=== PATIENT | male | born 1985 | race African-American/Black ===

== ENCOUNTER 2019-10-06 12:24 | Emergency (ER) | payer BC, SELFPAY ==
[2019-10-06 12:35] VITALS: BP 137/78; PULSE 85; RESP 16; TEMP 37.1; O2SAT 98
--- NOTE | 2019-10-06 12:50 | ED.DIZZY ---
HPI - Dizziness General Chief Complaint: Dizziness Stated Complaint: chest pain,dizziness Time Seen by Provider: 10/06/19 12:50 Source: patient Mode of arrival: ambulatory Limitations: no limitations History of Present Illness HPI Narrative: Roni Muniz is a 34 yo male with a PMH of chronic low back pain who comes to express care with complaints of chest pain and dizziness on wakening, states he has no chest pain and little to no dizziness. Denies alcohol or drug use, prior medical history, denies fever or illness. States he got overheated at work on Sunday, workout on Sunday and socialized with family on Father's Day. [place] drained and fatigue Description: lightheadedness Related Data Home Medications Medication Instructions Recorded Confirmed No Home Medications 10/06/19 10/06/19 Allergies Allergy/AdvReac Type Severity Reaction Status Date / Time No Known Allergies Allergy Verified 10/06/19 13:04 Review of Systems Review of Systems: Narrative: CONSTITUTIONAL: Denies fever, chills, sweats. EYES: Denies visual changes, redness, discharge. ENT: Denies rhinorrhea, congestion, sore throat, otalgia. CARDIOVASCULAR: chest pain earlier, no palpitations, edema. RESPIRATORY: Denies dyspnea, wheezing, cough GASTROINTESTINAL: Denies abdominal pain, nausea, vomiting, diarrhea. GENITOURINARY: Denies dysuria, hematuria, abnormal discharge SKIN: Denies rash or itching. NEUROLOGIC: Denies numbness, or focal weakness. Mild dizziness PSYCHIATRIC: Denies anxiety or depression. PMFSH Surgical History Surgical History History of appendectomy Status post carpal tunnel release Family History Family History Other No active medical problems Social History Social History Smoking status: Never smoker Second hand tobacco smoke exposure: No Alcohol intake: never Substance use: never Substance use type: does not use Gender identity (if verbalized by the patient): Male Comments At time of signature, I agree with nursing past medical, surgical, social and family history. There is no relevant family history pertinent to the presenting complaint. Exam Narrative: Exam Narrative: GENERAL: This is a well-nourished, well-developed patient, in mild distress. HEAD: normocephalic, atraumatic. EYES: PERRL. Sclera clear/white. Vision is grossly intact. EARS: External ears normal, . Hearing grossly intact. NOSE: External nose normal without nasal discharge, nares without redness, no rhinorrhea. THROAT: Mucous membranes moist, posterior pharynx NECK: Neck supple, CARDIOVASCULAR: Regular rate and rhythm without murmurs, gallops, or rubs. RESPIRATORY: Clear to auscultation. Breath sounds equal bilaterally. No wheezes, rales, or rhonchi. GASTROINTESTINAL: Abdomen soft, SKIN: warm, intact with no suspicious lesions or rash, good texture and turgor. NEURO: awake, alert, and oriented to person, place and time. There were no obvious focal neurologic abnormalities. Steady gait EXTREMITIES: Normal range of motion. BACK: Nontender without deformity Course Course Emergency Course: EKG done-no abnormalities Discussed activities during the Vital Signs Vital signs: Vital Signs Temperature 98.8 F 10/06/19 12:35 Pulse Rate 85 10/06/19 12:35 Respiratory Rate 16 10/06/19 12:35 Blood Pressure 137/78 10/06/19 12:35 Pulse Oximetry 98 10/06/19 12:35 Temperature 98.8 F 10/06/19 12:35 Pulse Rate 85 10/06/19 12:35 Respiratory Rate 16 10/06/19 12:35 Blood Pressure 137/78 10/06/19 12:35 Pulse Oximetry 98 10/06/19 12:35 Procedures Other Procedure Procedure 1: Other Procedure: EKG: HR 72, NSR, no axis deviation, no ST, QRS abnormalities. Normal EKG MDM - Dizziness Differential Diagnosis Differential diagnosis: Likely
--- NOTE | 2019-10-06 12:59 | ECG_ITS ---
Measurements Intervals [place] Rate: 72 P: 42 IL: 158 QRS: 45 QRSD: 91 T: 10 QT: 350 QTc: 383 Interpretive Statements SINUS RHYTHM NORMAL ECG Electronically Signed On 10-06-2019 14:45:41 CDT by Hemal Flores D.O.
== END 2019-10-06 13:23 | disposition home or self-care (01) ==
PROVIDERS: Emergency Provider Nurse Practitioner; PCP Family Medicine
DX: E86.0 Dehydration (principal)
CPT/HCPCS: 93005; 99213; G0463

== ENCOUNTER 2020-02-29 11:48 | Emergency (ER) | payer BC, SELFPAY ==
[2020-02-29 11:57] VITALS: BP 154/86; PULSE 97; RESP 16; TEMP 36.8; O2SAT 99
[2020-02-29 11:58] VITALS: BP 154/86; PULSE 97; RESP 16; TEMP 36.8; O2SAT 99
--- NOTE | 2020-02-29 12:05 | ED.GENADULT ---
HPI - General Adult General Chief complaint: Unspecified Stated complaint: knot on neck Time Seen by Provider: 02/29/20 11:58 Source: patient and RN notes reviewed Mode of arrival: ambulatory Limitations: no limitations History of Present Illness HPI narrative: Patient presents today complaining of a lump on either side of his neck that is swollen since this morning. Denies pain. Denies any sick symptoms to include sore throat, ear pain, tooth pain, neck pain, fever. States he could possibly be having an allergic reaction to the mouthwash she is been using and states is exceptionally strong and flavor. Denies any additional symptoms. MD complaint: Lump on neck Related Data Home Medications Medication Instructions Recorded Confirmed No Home Medications 02/29/20 02/29/20 Allergies Allergy/AdvReac Type Severity Reaction Status Date / Time No Known Allergies Allergy Verified 02/29/20 11:53 Review of Systems Review of Systems: Narrative: CONSTITUTIONAL: Denies body aches, fever, chills, or sweats. EYES: Denies visual changes, redness, or discharge. ENT: Denies rhinorrhea, congestion, sore throat, or otalgia. Lump on neck CARDIOVASCULAR: Denies chest pain, palpitations, or edema. RESPIRATORY: Denies cough or dyspnea. GASTROINTESTINAL: Denies abdominal pain, nausea, vomiting, or diarrhea. GENITOURINARY: Denies dysuria or hematuria. SKIN: Denies rash, itching, or wounds. MUSCULOSKELETAL: Denies back pain, joint pain, or myalgia. NEUROLOGIC: Denies headache, numbness, tingling, or weakness. PSYCH: Denies depression or anxiety. [facility] Surgical History Surgical History History of appendectomy Status post carpal tunnel release Family History Family History Other No active medical problems Social History Social History Smoking status: Never smoker Second hand tobacco smoke exposure: No Alcohol intake: never Substance use: never Substance use type: does not use Gender identity (if verbalized by the patient): Male Comments At time of signature, I have reviewed and agree with nursing past medical, surgical, social and family history unless otherwise noted. Please see nursing chart for further information. There is no relevant family history pertinent to the presenting complaint Exam Narrative: Exam Narrative: GENERAL: Well-appearing, well-nourished, and in no acute distress. HEAD: Normocephalic, atraumatic. EYES: EOMI. No redness or drainage. Conjunctivae normal. ENT: Mucous membranes pink and moist. Nares clear. No rhinorrhea. TMs normal bilaterally. Throat normal. Uvula midline. NECK: Normal AROM. Supple. Patient has some very mild bilateral tonsillar lymph node swelling without tenderness. CHEST: No respiratory distress. Clear to auscultation. HEART: Regular rate and rhythm. No murmur appreciated. Normal peripheral pulses. EXTREMITIES: Normal range of motion. No edema. SKIN: Warm, dry, no rash. Capillary refill normal. Normal skin turgor. NEURO: No focal deficits. Alert and oriented x3. Gait steady. PSYCH: Normal affect. No signs of depression or anxiety. Course Course Emergency Course: No additional symptoms to go along with lymph node swelling. Instructed patient to take NSAID and monitor. Agrees to follow up with PCP in 1-2 weeks if symptoms persist or if he develops any additional symptoms. Vital Signs Vital signs: Vital Signs Temperature 98.3 F 02/29/20 11:57 Pulse Rate 97 02/29/20 11:57 Respiratory Rate 16 02/29/20 11:57 Blood Pressure 154/86 H 02/29/20 11:57 Pulse Oximetry 99 02/29/20 11:57 Temperature 98.3 F 02/29/20 11:58 Pulse Rate 97 02/29/20 11:58 Respiratory Rate 16 02/29/20 11:58 Blood Pressure 154/86 H 02/29/20 11:58 Pulse Oximetry 99 02/29/20 11:58 Reviewed. Pt has b
== END 2020-02-29 12:10 | disposition home or self-care (01) ==
PROVIDERS: Emergency Provider Nurse Practitioner; PCP Family Medicine
DX: L04.0 Acute lymphadenitis of face, head and neck (principal)
CPT/HCPCS: 99211; G0463

== ENCOUNTER 2020-03-17 08:27 | Outpatient (CLI) | payer BC, SELFPAY ==
[2020-03-17 09:06] LABS: Hematocrit 44.2 % (42.0-52.0); Hemoglobin 14.8 g/dL (14.0-18.0); Mean Corpuscular HGB Conc 33.5 g/dl (32-36); Mean Corpuscular Hemoglobin 29.4 pg (26-34); Mean Corpuscular Volume 87.7 fl (80-100); Mean Platelet Volume 9.4 fl (7.4-10.4); Platelet Count Result 343 k/mm3 (150-375); Red Blood Count 5.04 M/mm3 (4.6-6.20); Red Cell Distribution Width 12.5 % (11.5-14.5); White Blood Count 10.3 K/mm3 (4.5-10.0)
[2020-03-17 09:09] LABS: Add Urine Microscopic? YES; Appearance Urine Clear (Clear); Bilirubin Urine Negative (Negative); Blood Urine Negative (Negative); Color Urine Yellow (Yellow); Glucose Urine UA Negative (Negative); Ketones Urine Negative (Negative); Leukocyte Esterase Ur Negative LEU/UL (NEGATIVE); Nitrate Urine Negative (Negative); Protein Urine Negative (Negative); RBC Urine 0-2 /hpf (0-2); Specific Grav Ur 1.017 (1.001-1.035); Urobilinogen Urine Negative mg/dL (<2.0); WBC Urine 0-3 /hpf (0-3)
[2020-03-17 09:17] LABS: Alanine Aminotransferase 23 U/L (4-50); Albumin Level 4.1 g/dL (3.5-5.1); Alkaline Phosphatase 87 U/L (38-126); Anion Gap 5 mmol/L (8-16); Aspartate Amino Transferase 28 U/L (17-59); Bilirubin,Total 0.5 mg/dL (0.2-1.3); Blood Urea Nitrogen 13 mg/dL (9-20); Calcium 9.5 mg/dL (8.4-10.2); Carbon Dioxide 33 mmol/L (22-30); Chloride 100 mmol/L (98-107); Cholesterol 192 mg/dL (0-200); Estimated Glomerular Filt Rate > 60; Glucose 106 mg/dL (75-110); HDL Direct 37 mg/dL; Potassium 4.2 mmol/L (3.4-5.0); Sodium 138 mmol/L (137-145); Triglycerides 53 mg/dL (<150)
[2020-03-17 09:28] LABS: LDL Cholesterol Direct 131 mg/dL
== END 2020-03-17 08:28 | disposition home or self-care (01) ==
PROVIDERS: PCP Family Medicine; Visit Provider Family Medicine
DX: Z51.81 Encounter for therapeutic drug level monitoring (principal); Z79.899 Other long term (current) drug therapy; Z00.00 Encounter for general adult medical examination without abnormal findings
CPT/HCPCS: 36415; 80053; 80061; 81001; 84443; 85027

== ENCOUNTER 2020-06-08 15:24 | Outpatient (CLI) | payer BC, SELFPAY ==
[2020-06-08 15:45] LABS: Hemoglobin A1C 4.8 % (<5.7)
== END 2020-06-08 15:25 | disposition home or self-care (01) ==
LOC: ANHLAB 15:24
PROVIDERS: PCP Family Medicine; Visit Provider Nurse Practitioner Family
DX: R73.01 Impaired fasting glucose (principal); R42 Dizziness and giddiness
CPT/HCPCS: 36415; 83036

== ENCOUNTER 2022-04-01 12:56 | Emergency (ER) | payer BC, SELFPAY ==
[2022-04-01 13:16] VITALS: BP 122/76; PULSE 79; RESP 16; TEMP 36.8; O2SAT 98
--- NOTE | 2022-04-01 13:46 | ED.DENTAL ---
HPI - Dental/Oral General Chief complaint: Dental/Oral Stated complaint: tooth pain Time Seen by Provider: 04/01/22 13:47 Source: patient, RN notes reviewed and old records reviewed Mode of arrival: ambulatory Limitations: no limitations History of Present Illness HPI Narrative: 37-year-old male presents to the [facility] with complaints of left lower posterior dental pain, swelling. Also reports a left pre-auricular lymph node swelling. Has been going on intermittently for about a month. Has not seen Primary nor dentist. Related Data Allergies Allergy/AdvReac Type Severity Reaction Status Date / Time No Known Allergies Allergy Verified 04/01/22 13:35 Review of Systems Review of Systems: All systems reviewed & are unremarkable except as noted in HPI and below Constitutional: Constitutional: Reports no additional constitutional complaints Eyes: Eyes: Reports no additional eye complaints ENT: Reports as per HPI (left lower dental pain) Cardiovascular: Cardiovascular: Reports no additional cardiovascular complaints, Denies chest pain and Denies dyspnea Respiratory: Respiratory: Reports no additional respiratory complaints, Denies chest congestion, Denies cough and Denies dyspnea Gastrointestinal: Gastrointestinal: Reports no additional gastrointestinal complaints, Denies abdominal pain, Denies nausea and Denies vomiting Musculoskeletal: Musculoskeletal: Reports no additional musculoskeletal complaints Integumentary/Breasts: Skin/Breast: Reports system reviewed and no additional complaints, except as docu Neurologic: Reports system reviewed and no additional complaints, except as documented Psychiatric: Psychiatric: Reports no additional psychiatric complaints Allergic/Immunologic: Allergic/Immunologic: Reports no additional allergic/immunologic complaints PMFSH Surgical History Surgical History History of appendectomy Status post carpal tunnel release Family History Family History Other No active medical problems Social History Social History Smoking status: Never smoker Second hand tobacco smoke exposure: No Alcohol intake: never Substance use: never Substance use type: does not use Gender identity (if verbalized by the patient): Male Sexual Orientation (if Verbalized by the Patient): Straight or Heterosexual Comments At the time of my signature, I reviewed and agree with the nursing past medical, surgical, social, and family history. There is no relevant family history pertinent to the patient complaint. Exam Const: General: cooperative, healthy appearing, comfortable, no acute distress, well developed, alert and well nourished Nutritional Appearance: well nourished and obese Orientation/consciousness: patient oriented x3 Limitations: no limitations HENMT: Head: normal to inspection Ears: hearing grossly normal bilaterally and external ears normal Face/Nose/Sinus: Normal external nose present, Normal nares present, Normal nasal mucous membranes and turbinates present and normal facial exam Face and sinus: normal facial exam Mouth: Yes Normal oral and palatal mucosa present, Yes lip normal and Yes moist mucous membranes Teeth and gingiva: abnormal tooth and associated gingiva Throat: posterior oropharynx normal and uvula midline Other: Left lower posterior gingival swelling, poor dentition Eyes: General: appearance normal, both eyes and all related structures Alignment and Position: alignment normal Periorbital: periorbital findings normal Conjunctivae: conjunctivae normal Pupils: Equal, round and reactive pupils present EOM: EOMs intact bilaterally Neck: Neck: normal visual inspection, full ROM, no lymphadenopathy and no meningeal signs Chest: Chest palpation & inspection: normal inspection of the chest Resp:
== END 2022-04-01 14:08 | disposition home or self-care (01) ==
PROVIDERS: Emergency Provider Nurse Practitioner; PCP Family Medicine
DX: K02.9 Dental caries, unspecified (principal); K04.7 Periapical abscess without sinus
CPT/HCPCS: 99213; G0463

== ENCOUNTER 2022-05-01 18:00 | Emergency (ER) | payer BC, SELFPAY ==
--- NOTE | 2022-05-01 18:30 | ED.NAVMDI ---
HPI - Nausea/Vomiting/Diarrhea General Chief complaint: Nausea/Vomiting/Diarrhea Stated complaint: Dizziness/Nausea/Vomit Time Seen by Provider: 05/01/22 18:30 Source: patient, RN notes reviewed and old records reviewed Mode of arrival: ambulatory Limitations: no limitations History of Present Illness HPI Narrative: 37-year-old male presents to the [facility] with complaints of nausea, vomiting a couple of times, headache. Patient starts his started about 11:00 a.m. this morning. Has been taking some type of [id number] medication. Patient reports 2 family members with the same symptoms. No treatment prior to arrival. States that he is able to keep water down. States he is hydrated. Denies any chest pain, abdominal pain. Denies fevers Related Data Home Medications Medication Instructions Recorded Confirmed No Home Medications 05/01/22 05/01/22 Allergies Allergy/AdvReac Type Severity Reaction Status Date / Time No Known Allergies Allergy Verified 05/01/22 18:01 Review of Systems Review of Systems: All systems reviewed & are unremarkable except as noted in HPI and below Constitutional: Constitutional: Reports as per HPI Eyes: Eyes: Reports no additional eye complaints ENT: Reports as per HPI Cardiovascular: Cardiovascular: Reports no additional cardiovascular complaints, Denies chest pain and Denies dyspnea Respiratory: Respiratory: Reports no additional respiratory complaints, Denies chest congestion, Denies cough and Denies dyspnea Gastrointestinal: Gastrointestinal: Reports as per HPI, Denies abdominal pain, Reports nausea and Denies vomiting Musculoskeletal: Musculoskeletal: Reports no additional musculoskeletal complaints Integumentary/Breasts: Skin/Breast: Reports system reviewed and no additional complaints, except as docu Neurologic: Reports system reviewed and no additional complaints, except as documented Psychiatric: Psychiatric: Reports no additional psychiatric complaints Allergic/Immunologic: Allergic/Immunologic: Reports no additional allergic/immunologic complaints [facility] Surgical History Surgical History History of appendectomy Status post carpal tunnel release Family History Family History Other No active medical problems Social History Social History Smoking status: Never smoker Second hand tobacco smoke exposure: No Alcohol intake: never Substance use: never Substance use type: does not use Gender identity (if verbalized by the patient): Male Sexual Orientation (if Verbalized by the Patient): Straight or Heterosexual Comments At the time of my signature, I reviewed and agree with the nursing past medical, surgical, social, and family history. There is no relevant family history pertinent to the patient complaint. Exam Const: General: cooperative, healthy appearing, comfortable, no acute distress, well developed, alert and well nourished Nutritional Appearance: well nourished Orientation/consciousness: patient oriented x3 Limitations: no limitations HENMT: Head: normal to inspection Ears: hearing grossly normal bilaterally and external ears normal Face/Nose/Sinus: Normal external nose present, Normal nares present, Normal nasal mucous membranes and turbinates present and normal facial exam Face and sinus: normal facial exam Mouth: Yes Normal oral and palatal mucosa present, Yes lip normal and Yes moist mucous membranes Throat: posterior oropharynx normal and uvula midline Eyes: General: appearance normal, both eyes and all related structures Alignment and Position: alignment normal Periorbital: periorbital findings normal Conjunctivae: conjunctivae normal Pupils: Equal, round and reactive pupils present EOM: EOMs intact bilaterally Neck: Neck: normal visual inspection, full ROM, no
[2022-05-01 18:43] VITALS: BP 147/79; PULSE 85; RESP 18; TEMP 36.8; O2SAT 96
== END 2022-05-01 18:49 | disposition home or self-care (01) ==
PROVIDERS: Emergency Provider Nurse Practitioner; PCP Family Medicine
DX: R11.2 Nausea with vomiting, unspecified (principal); R41.9 Unspecified symptoms and signs involving cognitive functions and awareness; R42 Dizziness and giddiness; Z20.822 Contact with and (suspected) exposure to COVID-19
CPT/HCPCS: 87426; 87804; 99213; C9803; G0463

== ENCOUNTER 2022-07-03 00:25 | Emergency (ER) | payer BC, SELFPAY ==
[2022-07-03 00:32] VITALS: BP 132/80; PULSE 80; RESP 16; TEMP 36.5; O2SAT 98
[2022-07-03 01:57] LABS: Influenza A QL RT-PCR Negative (Negative); Influenza B QL RT-PCR Negative (Negative); SARS-CoV-2 RNA PCR Positive
--- NOTE | 2022-07-03 02:10 | ED.GENADULT ---
HPI - General Adult General Chief complaint: Upper Respiratory Infection <Maurice Vo PA-C - Last Filed: 07/03/22 02:40> Stated complaint: COVID+ home test <Maurice Vo PA-C - Last Filed: 07/03/22 02:40> Time Seen by Provider: 07/03/22 02:03 <Maurice Vo PA-C - Last Filed: 07/03/22 02:40> History of Present Illness HPI narrative: This is a 37-year-old male presents to the ED after having a positive COVID test at home. He is requesting another test here. He is having headache, congestion, cough, sore throat. Symptoms present for the past 2 days. Denies fevers, chills, shortness of breath, chest pain. <Maurice Vo PA-C - Last Filed: 07/03/22 02:40> Related Data Allergies/adverse reactions: Allergies Allergy/AdvReac Type Severity Reaction Status Date / Time No Known Allergies Allergy Verified 05/30/22 15:46 <Maurice Vo PA-C - Last Filed: 07/03/22 02:40> Review of Systems Review of Systems: CONSTITUTIONAL: Denies fever, chills, or sweats. EYES: Denies visual changes, redness, or discharge. ENT: Endorses rhinorrhea, congestion, sore throat. denies otalgia. CARDIOVASCULAR: Denies chest pain, palpitations, or edema. RESPIRATORY: Endorses cough. Denies dyspnea. Denies sputum production or hematemesis. GASTROINTESTINAL: Denies abdominal pain, nausea, vomiting, or diarrhea. GENITOURINARY: Denies dysuria or hematuria. SKIN: Denies rash or itching. MUSCULOSKELETAL: Denies back pain, joint pain, or myalgia. NEUROLOGIC: Endorses headache. denies numbness, dizziness, or weakness. PSYCHIATRIC: Denies anxiety or depression. <DULCE Piper Last Filed: 07/03/22 02:40> [facility] Surgical History Surgical History: Surgical History History of appendectomy Status post carpal tunnel release <Maurice Vo PA-C - Last Filed: 07/03/22 02:40> Family History Family History: Family History Other No active medical problems <Maurice Vo PA-C - Last Filed: 07/03/22 02:40> Social History Social History: Social History Smoking status: Never smoker Second hand tobacco smoke exposure: No Alcohol intake: never Substance use: never Substance use type: does not use Living arrangements: with family Occupation/Education: occupation Gender identity (if verbalized by the patient): Male Sexual Orientation (if Verbalized by the Patient): Straight or Heterosexual <Maurice Vo PA-C - Last Filed: 07/03/22 02:40> Exam Narrative: GENERAL: Well-appearing, well-nourished, and in no acute distress. HEAD: Normocephalic, atraumatic. EYES: PERRLA and EOMI. ENT: Nares clear, no rhinorrhea or epistaxis. Mucous membranes moist. Oropharynx without tonsillar hypertrophy exudate or other lesions. Posterior oropharynx erythema is present. NECK: Supple. No adenopathy or masses. CHEST: No respiratory distress. Clear to auscultation. No wheezes rales or rhonchi. Sats 98% on room air. HEART: Regular rate and rhythm. No murmur heard. Normal peripheral pulses. ABDOMEN: Soft, nontender, nondistended, normal active bowel sounds. EXTREMITIES: Normal range of motion. No edema. SKIN: Warm, dry, no rash. NEURO: Alert and oriented x3. No focal deficits. PSYCH: Normal mood and affect. <Maurice Vo PA-C - Last Filed: 07/03/22 02:40> Course [employer]PERATOR/PA Physician Supervision This is a was performed by both a physician and an APC. I performed all aspects of the MDM as documented w/ the following additions: Healthy 37-year-old male presenting to ED after having a covid test at home. Covered was confirmed in the emergency department. He has URI symptoms with stable vital signs is not requiring oxygen. Patient will be discharged. Return precautions given.All questions answered. Patient in agreement w/ disposition.
== END 2022-07-03 02:39 | disposition home or self-care (01) ==
LOC: ANHED 02:23
PROVIDERS: Emergency Provider Physician Assistant; PCP Family Medicine
DX: U07.1 COVID-19 (principal)
CPT/HCPCS: 87636; 99283

== ENCOUNTER 2025-01-08 15:25 | Outpatient (CLI) | payer BC, SELFPAY ==
--- NOTE | ~2025-01-08 | XR_ITS ---
XR cervical spine min 6V Indication: M54.2 - Cervicalgia Comparison: None Findings: No fracture identified, no subluxation flexion-extension The disc heights are intact. Soft tissues unremarkable Impression: No acute abnormality. Reviewed, dictated and finalized at location P. Impression: No acute abnormality.
== END 2025-01-08 15:26 | disposition home or self-care (01) ==
LOC: MICIMG 15:29
PROVIDERS: PCP Physician Assistant; Visit Provider Physician Assistant
DX: M54.2 Cervicalgia (principal)
CPT/HCPCS: 72052